=== PATIENT | male | born 1935 | race Caucasian/White ===

== ENCOUNTER 2017-08-26 10:50 | Inpatient (IN) | payer OTHER, BC ==
[~2017-08-26] VITALS: Ht 190.5 cm; Wt 86.0 kg
[~2017-08-26 10:50] MED LIST: AVAPRO300 MG PO; COUMADIN2 MG PO; HALFPRIN162 MG PO; LABETALOL HCL200 MG PO; Lipitor PO; NORVASC5 MG PO; PLAVIX75 MG PO; PRINIVIL20 MG PO; PriLOSEC PO; Proscar PO; SIMVASTATIN40 MG PO; TRIAMTERENE/HC1 EACH PO
[2017-08-26 11:40] LABS: HEMATOCRIT 33.2 % (38.0-50.0); HEMOGLOBIN 10.6 G/DL (12.5-16.6); MCH 25.7 PG (29.0-34.0); MCHC 31.9 G/DL (30.0-36.0); MCV 80.4 FL (86-99); PLATELET COUNT 122 K/uL (156-360); RBC DIS.WIDTH-CV 17.3 % (11.8-14.6); RBC DIS.WIDTH-SD 50.4 % (39-53); RED BLOOD COUNT 4.13 M/uL (4.00-5.50); WHITE BLOOD COUNT 6.8 K/uL (4.1-10.2)
[2017-08-26 11:56] LABS: CHLORIDE 103 mEq/L (99-109); POTASSIUM 3.6 mEq/L (3.7-5.4); SODIUM 140 mEq/L (136-147)
[2017-08-26 11:58] LABS: GLUCOSE 144 mg/dL (70-99)
[2017-08-26 12:02] LABS: CREATININE 1.2 mg/dL (0.6-1.3); GFR ESTIMATE (CALCULATED) > 59 mL/min/ (58.99-99999)
[2017-08-26 12:03] LABS: UREA NITROGEN (BUN) 25 mg/dL (9-23)
[2017-08-26 12:27] LABS: TROP-I INTERPRETATION NEGATIVE; TROPONIN-I 0.05 ng/mL (0.0-0.30)
[2017-08-26] MEDS ORDERED: LIPITOR20 MG PO (13:06)
[2017-08-26] MEDS ORDERED: PRILOSEC20 MG PO (13:07)
[2017-08-26] MEDS ORDERED: ASPIRIN325 MG PO (13:07)
[2017-08-26] MEDS ORDERED: NITROSTAT0.4 MG SL (13:08)
[2017-08-26] MEDS ORDERED: PROSCAR5 MG PO (13:08)
[2017-08-26] MEDS ORDERED: LEVOTHYROXINE25 MCG PO (13:09)
[2017-08-26] MEDS ORDERED: LOPRESSOR25 MG PO (13:09)
[2017-08-26] MEDS ORDERED: KLOR-CON M2020 MEQ PO (13:10)
[2017-08-26] MEDS ORDERED: CARDURA2 M1 PO (13:10)
[2017-08-26] MEDS ORDERED: LASIX20 MG PO (13:10)
[2017-08-26] MEDS ORDERED: FAMVIR250 MG PO (13:11)
[2017-08-26] MEDS ORDERED: COUMADIN2 MG PO (16:24)
[2017-08-26] MEDS ORDERED: MAGNESIUM OXID200 MG PO (16:29)
[2017-08-26 19:21] VITALS: BP 145/70
[2017-08-26 20:54] LABS: INTER. NORMALIZED RATIO 2.2
[2017-08-26 23:32] VITALS: BP 147/66
[2017-08-27] VITALS (7 sets, daily range): BP systolic 114–159; BP diastolic 65–78
[2017-08-27 06:58] LABS: HEMATOCRIT 32.2 % (38.0-50.0); HEMOGLOBIN 10.3 G/DL (12.5-16.6); MCH 25.4 PG (29.0-34.0); MCV 79.3 FL (86-99); PLATELET COUNT 126 K/uL (156-360); RBC DIS.WIDTH-CV 17.3 % (11.8-14.6); RBC DIS.WIDTH-SD 49.9 % (39-53); RED BLOOD COUNT 4.06 M/uL (4.00-5.50); WHITE BLOOD COUNT 7.7 K/uL (4.1-10.2)
[2017-08-27 07:08] LABS: CHLORIDE 103 MEQ/L (99-109); CREATININE 1.1 MG/DL (0.6-1.3); GFR ESTIMATE (CALCULATED) > 59 mL/min/ (58.99-99999); GLUCOSE 170 mg/dL (70-99); POTASSIUM 3.6 MEQ/L (3.7-5.4); SODIUM 141 MEQ/L (136-147); UREA NITROGEN (BUN) 28 mg/dL (9-23)
[2017-08-27 07:29] LABS: INTER. NORMALIZED RATIO 2.2
[2017-08-28 03:38] VITALS: BP 145/69
[2017-08-28 06:45] LABS: BASOPHIL (%) 0.2 % (0-1); EOSINOPHIL (%) 0 % (0-5); HEMOGLOBIN 10.4 G/DL (12.5-16.6); IMMATURE GRANULOCYTE (%) 0.7 % (0.0-0.7); LYMPHOCYTE (%) 5.9 % (15-42); LYMPHOCYTE COUNT 0.8 K/uL (1.0-2.8); MCH 25.3 PG (29.0-34.0); MCHC 31.5 G/DL (30.0-36.0); MCV 80.3 FL (86-99); MONOCYTE COUNT 0.3 K/uL (0-0.8); NEUTROPHIL (%) 91.2 % (45-76); NEUTROPHIL COUNT 11.8 K/uL (1.8-6.4); PLATELET COUNT 148 K/uL (156-360); RBC DIS.WIDTH-CV 17.3 % (11.8-14.6); RBC DIS.WIDTH-SD 50.3 % (39-53); RED BLOOD COUNT 4.11 M/uL (4.00-5.50)
[2017-08-28 06:48] LABS: INTER. NORMALIZED RATIO 2.3
[2017-08-28 07:04] LABS: CHLORIDE 101 MEQ/L (99-109); CREATININE 1.1 MG/DL (0.6-1.3); GFR ESTIMATE (CALCULATED) > 59 mL/min/ (58.99-99999); GLUCOSE 162 mg/dL (70-99); POTASSIUM 3.7 MEQ/L (3.7-5.4); SODIUM 138 MEQ/L (136-147); UREA NITROGEN (BUN) 34 mg/dL (9-23)
[2017-08-28 07:18] VITALS: BP 134/73
[2017-08-28 15:16] VITALS: BP 151/67
[2017-08-28 18:17] LABS: CHLORIDE 98 MEQ/L (99-109); MAGNESIUM 2.3 mg/dl (1.3-2.7); POTASSIUM 3.6 MEQ/L (3.7-5.4); SODIUM 137 MEQ/L (136-147)
[2017-08-28 18:23] LABS: CREATININE 1.1 MG/DL (0.6-1.3); GFR ESTIMATE (CALCULATED) > 59 mL/min/ (58.99-99999); GLUCOSE 144 mg/dL (70-99); UREA NITROGEN (BUN) 38 mg/dL (9-23)
[2017-08-28 20:15] VITALS: BP 137/79
[2017-08-28 23:48] VITALS: BP 138/86
[2017-08-29 07:11] LABS: INTER. NORMALIZED RATIO 2.8
[2017-08-29 08:00] VITALS: BP 129/83
[2017-08-29 11:00] VITALS: BP 133/78
[2017-08-29] MEDS ORDERED: AZITHROMYCIN500 M1 PO (15:03)
[2017-08-29] MEDS ORDERED: KEFLEX500 MG PO (15:03)
[2017-08-29] MEDS ORDERED: KLOR-CON M2020 MEQ PO (15:05)
[2017-08-29] MEDS ORDERED: LASIX20 MG PO (15:06)
== END 2017-08-29 16:52 | disposition home or self-care (01) | DRG 291 ==
LOC: EME 10:50 → EDOF 13:38 → 5EAST 13:38 → ENRESERV 13:40 → 5EAST 17:07
PROVIDERS: Emergency Medicine; Student in an Organized Health Care Education/Training Program
DX: I11.0 Hypertensive heart disease with heart failure (principal); J44.1 Chronic obstructive pulmonary disease with (acute) exacerbation; R09.02 Hypoxemia; I50.22 Chronic systolic (congestive) heart failure; I48.91 Unspecified atrial fibrillation; J18.9 Pneumonia, unspecified organism; I25.10 Atherosclerotic heart disease of native coronary artery without angina pectoris; I49.5 Sick sinus syndrome; Z95.5 Presence of coronary angioplasty implant and graft; Z79.01 Long term (current) use of anticoagulants; Z79.82 Long term (current) use of aspirin; Z95.0 Presence of cardiac pacemaker; Z82.49 Family history of ischemic heart disease and other diseases of the circulatory system; Z79.899 Other long term (current) drug therapy
CPT/HCPCS: 71045; 80048; 80048 91; 83605; 83735; 83880; 84484; 85025; 85027; 85610; 87040; 87449; 87502; 87651 90; 93005; 94640; 94760; 94799; 99281; 99285; J0456; J0696; J1100; J1650; J1940; J2920; J2930

== ENCOUNTER → 2018-01-09 | Outpatient (CLI) | payer OTHER, BC ==
[~2018-01-09] VITALS: Ht 190.5 cm; Wt 79.4 kg
[~2018-01-09] MED LIST changes: +ALDACTONE25 MG PO; +ASPIRIN325 MG PO; +AZITHROMYCIN500 M1 PO; +CARDURA2 M1 PO; +FAMVIR250 MG PO; +K-DUR20 MEQ PO; +KEFLEX500 MG PO; +KLOR-CON M2020 MEQ PO; +LASIX20 MG PO; +LEVOTHYROXINE25 MCG PO; +LIPITOR20 MG PO; +LOPRESSOR25 MG PO; +MAGNESIUM OXID200 MG PO; +METOLAZONE2.5 MG PO; +NITROSTAT0.4 MG SL; +PRILOSEC20 MG PO; +PROSCAR5 MG PO
[2018-01-09 13:58] LABS: INTER. NORMALIZED RATIO 1.2
== END | disposition home or self-care (01) ==
LOC: AMB 12:18
PROVIDERS: Internal Medicine Gastroenterology
PROC: 0DBL8ZX Excision of Transverse Colon, Via Natural or Artificial Opening Endoscopic, Diagnostic (ICD-10-PCS; principal; 2018-01-09)
PROC: 0DB68ZX Excision of Stomach, Via Natural or Artificial Opening Endoscopic, Diagnostic (ICD-10-PCS; principal; 2018-01-09)
PROC: 0DB98ZX Excision of Duodenum, Via Natural or Artificial Opening Endoscopic, Diagnostic (ICD-10-PCS; principal; 2018-01-09)
DX: D64.9 Anemia, unspecified (principal); D12.3 Benign neoplasm of transverse colon; K57.30 Diverticulosis of large intestine without perforation or abscess without bleeding; K64.8 Other hemorrhoids; K44.9 Diaphragmatic hernia without obstruction or gangrene; Z86.010 Personal history of colon polyps; K29.50 Unspecified chronic gastritis without bleeding; R19.5 Other fecal abnormalities; I49.5 Sick sinus syndrome; I47.2 Ventricular tachycardia; I48.91 Unspecified atrial fibrillation; Z95.0 Presence of cardiac pacemaker; I25.10 Atherosclerotic heart disease of native coronary artery without angina pectoris; I10 Essential (primary) hypertension; I71.2 Thoracic aortic aneurysm, without rupture; E78.5 Hyperlipidemia, unspecified
CPT/HCPCS: 85610; 85730; 88305; 88342 TC; 93005